=== PATIENT | female | born 1995 | race American Indian/Alaskan Native ===

== ENCOUNTER 2017-01-30 21:45 | Emergency (ER) | payer SELFPAY ==
[2017-01-30 23:55] LABS: Bilirubin,Urine NEG (Negative); Blood,Urine NEG (Negative); Ketones,Urine TR mg/dL (Negative); Leukocyte Esterase,Urine MOD (Negative); Mucus,Urine 1+ /HPF; Nitrite,Urine NEG (Negative)
[2017-01-31] MEDS ORDERED: ZOFRAN IV ONE (02:05)
[2017-01-31] MEDS ORDERED: MORPHINE IV ONE (02:05)
[2017-01-31] MEDS ORDERED: NACL 0.9% 1000 ML 1,000 ML IV ONE (02:06)
--- NOTE | 2017-01-31 02:09 | Emergency Department Report ---
HPI - General Chief Complaint: Abdominal Pain Time Seen by Provider: 01/31/17 01:58 - HPI HPI: Room 26 The patient is a 21-year-old female presenting with a chief complaint of abdominal pain. The patient states she has had pain in her right lower quadrant and suprapubic region for the past 10 days. Patient's current pain is cramping and constant in nature. Patient denies nausea or vomiting. Patient denies dysuria but states she's had yellowish vaginal discharge for the past 10 days. The patient admits to subjective fever. Patient currently gives her pain a score of 8-9/10 Location: [see above] Duration: [see above] Quality: Cramping Severity: 10 Modifying factors: [see above] Context: [see above] Mode of transportation: [not driving] ED Past Medical Hx - Past Medical History Previous Medical History?: Yes - Surgical History Past Surgical History?: Yes Additional Surgical History: c section x1 d&c x 1 - Family History Family history: no significant - Social History Smoking Status: Never Smoker Substance Use Type: None (denies illicit drug use), Alcohol (occasional) - Medications Home Medications: Home Medications Medication Instructions Recorded Confirmed Last Taken Type HYDROcodone/APAP 5-325 [Flomot 1 - 2 each PO Q6HR PRN #12 tablet 01/31/17 Unknown Rx 5/325] Ibuprofen [Motrin 800 MG tab] 800 mg PO Q8HR PRN #20 tablet 01/31/17 Unknown Rx Sulfamethoxazole/Trimethoprim 1 each PO BID #20 tablet 01/31/17 Unknown Rx [Bactrim DS TAB] metroNIDAZOLE [Flagyl] 500 mg PO Q12HR #14 tab 01/31/17 Unknown Rx ED Review of Systems ROS: Stated complaint: PELVIC PAIN/PRESSURE/DISCHARGE Other details as noted in HPI Comment: All other systems reviewed and negative Constitutional: fever (subjective). denies: chills Eyes: denies: eye pain, eye discharge, vision change ENT: denies: ear pain, throat pain Respiratory: denies: cough, shortness of breath, wheezing Cardiovascular: denies: chest pain, palpitations Endocrine: no symptoms reported Gastrointestinal: abdominal pain. denies: nausea, vomiting Genitourinary: discharge. denies: dysuria Musculoskeletal: denies: back pain, joint swelling, arthralgia Skin: denies: rash, lesions Neurological: denies: headache, weakness, paresthesias Psychiatric: denies: anxiety, depression Hematological/Lymphatic: denies: easy bleeding, easy bruising Physical Exam - Physical Exam Vital Signs: Vital Signs 01/30/17 21:54 Temperature 99.8 F H Pulse Rate 105 H Respiratory 20 Rate Blood Pressure 120/67 Blood Pressure 120/67 [Right] O2 Sat by Pulse 100 Oximetry Physical Exam: GENERAL: The patient is well-developed well-nourished female lying on stretcher appearing to be in mild discomfort HEENT: Normocephalic. Atraumatic. Extraocular motions are intact. Patient has moist mucous membranes. NECK: Supple. Trachea midline CHEST/LUNGS: Clear to auscultation. There is no respiratory distress noted. HEART/CARDIOVASCULAR: Regular. There is no tachycardia. There is no gallop rub or murmur. ABDOMEN: Abdomen is soft, with diffuse tenderness to palpation. Patient has normal bowel sounds. There is no abdominal distention. SKIN: There is no rash. There is no edema. There is no diaphoresis. NEURO: The patient is awake, alert, and oriented. The patient is cooperative. The patient has normal speech MUSCULOSKELETAL:There is no evidence of acute injury. PELVIC: Thick yellowish discharge present in the vaginal vault. Malodorous ED Course Vital Signs 01/30/17 21:54 Temperature 99.8 F H Pulse Rate 105 H Respiratory 20 Rate Blood Pressure 120/67 Blood Pressure 120/67 [Right] O2 Sat by Pulse 100 Oximetry ED Medical Decision Making - Lab Data Result diagrams: 01/31/17 02:21 01/31/17 02:21 Laboratory Tests 01/30/17 01/31/17 01/31/17 Unknown 00:01 02:21 WBC 11.4 H RBC 4.36 Hgb 8.5 L Hct 29.3 L MCV 67 L MCH 20 L MCHC 29 L RDW 21.3 H Plt Count 356 Lymph % (Auto) 13.2 L Angelina % (Auto) 8.2 H Eos % (Auto) 1.1 Baso % (Auto) 0.3 Lymph # 1.5 Angelina # 0.9 H Eos # 0.1 Baso # 0.0 Seg Neutrophils % 77.2 H Seg Neutrophils # 8.8 H Sodium Potassium Chloride Carbon Dioxide Anion Gap BUN Creatinine Estimated GFR BUN/Creatinine Ratio Glucose Calcium Total Bilirubin AST ALT Alkaline Phosphatase Total Protein Albumin Albumin/Globulin Ratio Urine Color Yellow Urine Turbidity Clear Urine pH 6.0 Ur Specific [place] 1.027 Urine Protein 30 mg/dl Urine Glucose (UA) Neg Urine Ketones Tr Urine Blood Neg Urine Nitrite Neg Urine Bilirubin Neg Urine Urobilinogen 2.0 Ur Leukocyte Esterase Mod Urine WBC (Auto) 28.0 H Urine RBC (Auto) 3.0 U Epithel Cells (Auto) 1.0 Urine Mucus 1+ Urine HCG, Qual Negative 01/31/17 02:21 WBC RBC Hgb Hct MCV MCH MCHC RDW Plt Count Lymph % (Auto) Angelina % (Auto) Eos % (Auto) Baso % (Auto) Lymph # Angelina # Eos # Baso # Seg Neutrophils % Seg Neutrophils # Sodium 138 Potassium 3.7 Chloride 101.8 Carbon Dioxide 24 Anion Gap 16 BUN 10 Creatinine 0.6 L Estimated GFR > 60 BUN/Creatinine Ratio 16.66 Glucose 92 Calcium 8.2 L Total Bilirubin 0.20 AST 11 ALT 6 L Alkaline Phosphatase 77 Total Protein 6.6 Albumin 3.6 L Albumin/Globulin Ratio 1.2 Urine Color Urine Turbidity Urine pH Ur Specific [place] Urine Protein Urine Glucose (UA) Urine Ketones Urine Blood Urine Nitrite Urine Bilirubin Urine Urobilinogen Ur Leukocyte Esterase Urine WBC (Auto) Urine RBC (Auto) U Epithel Cells (Auto) Urine Mucus Urine HCG, Qual Wet prep-greater than 20% clue cells, no yeast, no Trichomonas - Radiology Data Radiology results: report reviewed (CT abdomen and pelvis), image reviewed (CT abdomen and pelvis) CT abdomen and pelvis (read by radiologist)-there is no evidence of intestinal or urinary tract obstruction. No ileus or enteritis. The appendix is normal. Abdominal cyst right ovary measures 2.5 cm. Minimal fluid lower pelvis. The uterus is retroverted. - Differential Diagnosis vaginitis, appendicitis, UTI, ovarian cyst Critical care attestation.: If time is entered above; I have spent that time in minutes in the direct care of this critically ill patient, excluding procedure time. ED Disposition Clinical Impression: Acute abdominal pain, UTI (urinary tract infection), Right ovarian cyst, Bacterial vaginosis Disposition: TO HOME OR SELFCARE Is pt being admited?: No Does the pt Need Aspirin: No Condition: Stable Instructions: Abdominal Pain (ED), Bacterial Vaginosis (ED), Ovarian Cyst (ED) Prescriptions: HYDROcodone/APAP 5-325 [Flomot 5/325] 1 - 2 each PO Q6HR PRN #12 tablet PRN Reason: Pain Ibuprofen [Motrin 800 MG tab] 800 mg PO Q8HR PRN #20 tablet PRN Reason: Pain metroNIDAZOLE [Flagyl] 500 mg PO Q12HR #14 tab Sulfamethoxazole/Trimethoprim [Bactrim DS TAB] 1 each PO BID #20 tablet Referrals: PRIMARY CARE [Primary Care Provider] - 3-5 Days [facility] [Provider Group] - 3-5 Days (Please follow up with my OB/ [facility] for further evaluation/management of your right ovarian cyst) Forms: STI Treatment and Prevention Time of Disposition: 04:15
[2017-01-31] MEDS ORDERED: NACL ONE (02:21)
[2017-01-31 02:52] LABS: Basophils % (Auto) 0.3 % (0.0-1.8); Eosinophils % (Auto) 1.1 % (0.0-4.3); Mean Corpuscular HGB Conc 29 % (30-34); Platelet Count 356 K/mm3 (140-440); Red Blood Count 4.36 M/mm3 (3.65-5.03); White Blood Count 11.4 K/mm3 (4.5-11.0)
[2017-01-31 02:53] LABS: Hematocrit 29.3 % (30.3-42.9); Hemoglobin 8.5 gm/dl (10.1-14.3); Mean Corpuscular Hemoglobin 20 pg (28-32); Mean Corpuscular Volume 67 fl (79-97); Red Cell Distribution Width 21.3 % (13.2-15.2)
[2017-01-31 02:57] LABS: Alanine Aminotransferase 6 units/L (7-56); Albumin 3.6 g/dL (3.9-5); Albumin/Globulin Ratio 1.2 %; Alkaline Phosphatase 77 units/L (35-129); Anion Gap 16 mmol/L; BUN/Creatinine Ratio 16.66; Blood Urea Nitrogen 10 mg/dL (7-17); Calcium 8.2 mg/dL (8.4-10.2); Carbon Dioxide 24 mmol/L (22-30); Chloride 101.8 mmol/L (98-107); Glucose 92 mg/dL (65-100); Potassium 3.7 mmol/L (3.6-5.0); Sodium 138 mmol/L (137-145); Total Protein 6.6 g/dL (6.3-8.2)
[2017-01-31] MEDS ORDERED: SUBLIMAZE IV ONE (03:36)
--- NOTE | 2017-01-31 03:42 | Cat Scan Report ---
FINAL REPORT PROCEDURE: CT ABDOMEN PELVIS W CON TECHNIQUE: Computerized axial tomography of the abdomen and pelvis was performed after the IV injection of iodinated nonionic contrast. HISTORY: right lower quadrant abdominal pain COMPARISON: No prior studies are available for comparison. FINDINGS: Visualized lower thorax: No significant abnormality. Liver: Normal size and attenuation. Spleen: Normal size and attenuation. Gallbladder and biliary system: Normal. Pancreas: Normal. Adrenals: Normal. Kidneys: Normal. GI tract: The stomach is normal. The small bowel has a normal caliber. No obstruction, ileus or enteritis. The cecum, appendix and colon are normal.. Lymph nodes and mesentery: Normal. Vasculature: Normal. Bladder: Normal. Reproductive organs: The uterus is retroverted. A dominant cyst right ovary measures 2.5 centimeters. Minimal fluid in the lower pelvis.. Peritoneum: No free fluid. Musculoskeletal structures: No significant abnormality. Other: None. IMPRESSION: There is no evidence of intestinal or urinary tract obstruction. No ileus or enteritis. The appendix is normal. Dominant cyst right ovary measures 2.5 centimeters. Minimal fluid lower pelvis. The uterus is retroverted.
[2017-01-31] MEDS ORDERED: ZITHROMAX PO ONE (04:13)
[2017-01-31] MEDS ORDERED: XYLOCAINE 1% MPF 5 mL INFILTRATI ONE (04:13)
[2017-01-31] MEDS ORDERED: ROCEPHIN IM ONE (04:13)
[2017-01-31 04:29] VITALS: BP 117/64
== END 2017-01-31 04:39 | disposition home or self-care (01) ==
LOC: ED 21:45
DX: N39.0 Urinary tract infection, site not specified (principal); N83.201 Unspecified ovarian cyst, right side; N76.0 Acute vaginitis
CPT/HCPCS: 36415; 74177; 80053; 81001; 81025; 85025; 87210; 87591; 96361; 96372; 96374; 96375; 99285; J0696; J2270; J2405; J3010; J7030; Q9967

== ENCOUNTER 2018-09-06 18:21 | Outpatient (CLI) | payer OTHER ==
[2018-09-06] MEDS ORDERED: LACTATED RINGERS 500 ML IV ONE (19:32)
--- NOTE | 2018-09-06 21:36 | Ultrasound Report ---
FINAL REPORT PROCEDURE: US OB LIMITED TECHNIQUE: Real-time limited sonographic examination was performed for evaluation of amniotic fluid for each fetus with image documentation (1 or more fetuses). CPT 88243 HISTORY: r/o SROM COMPARISON: No prior studies are available for comparison. FINDINGS: A single intrauterine gestation is identified with a heart rate of 144 beats per minute. Placen ta is anterior. Presentation is cephalic. Amniotic fluid index is 9.4 centimeters. IMPRESSION: Amniotic fluid index is within normal limits measuring 9.4 centimeters
[2018-09-08 12:42] VITALS: BP 104/59
[2018-10-28 12:29] LABS: Bacteria,Urine 1+ /HPF (Negative); Mucus,Urine FEW /HPF
[2018-10-28 12:34] LABS: Bilirubin,Urine NEG (Negative); Blood,Urine NEG (Negative); Color,Urine Yellow (Yellow); Protein,Urine <15 mg/dL mg/dL (Negative); Urobilinogen,Urine < 2.0 mg/dL (<2.0)
== END 2018-09-06 20:25 | disposition home or self-care (01) ==
LOC: TRG 18:21
PROVIDERS: ATTEND Obstetrics & Gynecology
DX: O47.03 False labor before 37 completed weeks of gestation, third trimester (principal); Z3A.30 30 weeks gestation of pregnancy
CPT/HCPCS: 76815

== ENCOUNTER 2019-07-28 10:56 | Emergency (ER) | payer OTHER ==
--- NOTE | 2019-07-28 12:24 | Emergency Department Report ---
ED Fever HPI - General Chief Complaint: Fever Stated Complaint: FEVER Time Seen by Provider: 07/28/19 11:39 Source: patient Exam Limitations: no limitations - History of Present Illness Initial Comments: 24 year old female presents to ED c/o fever. 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 Patient states that her vital signs was checked by the nurse at the facility, and it was noted she had a temperature of 101 orally. Patient was not given anything for the fever. She states that she did notice that she started having some sore throat this morning. Otherwise she has not had any runny nose, nasal congestion, coughing, shortness of breath or wheezing. She has not had any GI or symptoms. She has not been around anybody sick. Timing/Duration: this morning Fever Severity/Quality: greater than 100.5 F Fever Therapy PHYSICIAN SPECIALIST: none Associated Symptoms: sore throat ED Review of Systems ROS: Stated complaint: FEVER Other details as noted in HPI Comment: All other systems reviewed and negative Constitutional: fever. denies: chills, weakness ENT: throat pain. denies: ear pain, dental pain, hearing loss, epistaxis, congestion Respiratory: denies: cough, orthopnea, shortness of breath, SOB with exertion, SOB at rest, stridor, wheezing Cardiovascular: denies: chest pain, palpitations, dyspnea on exertion, edema, syncope Gastrointestinal: denies: abdominal pain, nausea, diarrhea Genitourinary: denies: urgency, dysuria, frequency, hematuria Skin: denies: rash Neurological: denies: headache, weakness, numbness, paresthesias, confusion, abnormal gait, vertigo ED Past Medical Hx - Past Medical History Previous Medical History?: No Hx Hypertension: No Hx Diabetes: No Hx Deep Vein Thrombosis: No Hx Renal Disease: No Hx Sickle Cell Disease: No Hx Seizures: No Hx Asthma: No - Surgical History Past Surgical History?: Yes Additional Surgical History: c section x1 d&c x 1 - Social History Smoking Status: Current Every Day Smoker Substance Use Type: Alcohol, Marijuana - Medications Home Medications: Home Medications Medication Instructions Recorded Confirmed Last Taken Type HYDROcodone/APAP 5-325 [[place] 1 - 2 each PO Q6HR PRN #12 tablet 01/31/17 Unknown Rx 5/325] Sulfamethoxazole/Trimethoprim 1 each PO BID #20 tablet 01/31/17 Unknown Rx [Bactrim DS TAB] metroNIDAZOLE [Flagyl] 500 mg PO Q12HR #14 tab 01/31/17 Unknown Rx Acetaminophen 500 mg PO Q8H PRN 20 Days tablet 06/26/18 Unknown Rx Clindamycin [Clindamycin CAP] 300 mg PO Q8H #21 cap 06/26/18 Unknown Rx Phenol 1.4% [Chloraseptic] 2 spray MM PRN #1 bottle 07/28/19 Unknown Rx diphenhydrAMINE [Benadryl CAP] 25 mg PO Q6HR PRN #30 capsule 07/28/19 Unknown Rx predniSONE [Deltasone] 60 mg PO QDAY 4 Days #12 tab 07/28/19 Unknown Rx ED Physical Exam - General Limitations: No Limitations General appearance: alert, in no apparent distress - Head Head exam: Present: atraumatic - Eye Eye exam: Present: normal appearance, PERRL, EOMI Pupils: Present: normal accommodation - ENT ENT exam: Present: normal exam, mucous membranes moist, TM's normal bilaterally, other - Expanded ENT Exam Expanded Mouth exam: Present: normal external inspection Throat exam: Positive: tonsillar erythema. Negative: tonsillomegaly, tonsillar exudate, R peritonsillar mass, L peritonsillar mass - Neck Neck exam: Present: normal inspection, full ROM, lymphadenopathy. Absent: tenderness, meningismus - Respiratory Respiratory exam: Present: normal lung sounds bilaterally. Absent: respiratory distress, wheezes, rales, rhonchi, stridor - Cardiovascular Cardiovascular Exam: Present: regular rate, normal rhythm - GI/Abdominal GI/Abdominal exam: Present: soft, distended. Absent: tenderness - Neurological Exam Neurological exam: Present: alert, oriented X3, CN II-XII intact, normal gait - Psychiatric Psychiatric exam: Present: normal affect, normal mood - Skin Skin exam: Present: intact ED Course Vital Signs 07/28/19 07/28/19 07/28/19 11:12 13:06 15:31 Temperature 100.8 F H 98.5 F Pulse Rate 94 H 84 Respiratory 16 16 15 Rate Blood Pressure 128/77 123/79 [Right] O2 Sat by Pulse 98 100 Oximetry ED Medical Decision Making - Medical Decision Making 24 year old female presents with c/o fever. She states it developed while she was at a routine counseling session this morning. She reported feeling flushed and lightheaded at the time but this has since resolved. Only other symptom was sore throat. Rapid strep today negative. Fever could be related to viral pharyngitis at this time. Flu not done since pt not having any other symptoms. [id number] -- Upon discharge and discussing results and suspected dx with pt, she now reports pruritic rash which she noticed just a few minutes ago while in room. Only medication given was tylenol but she states it was just given to her and she has had tylenol before without any issues. She states she was laying in bed wrapped up in blanket, but otherwise no other new contacts. Pt does have a diffuse urticarial erythematous rash noted to bilateral upper extremity, chest, and her back. She has no swelling, no facial/antonio/throat/lip Involvement, no chest pain, wheezing or shortness of breath. Patient will be treated with solumedrol and benadryl prior to d/c. Exact cause of this urticarial rash unclear. Overall patient is not toxic, she is not ill-appearing, she is not in any acute pain or respiratory distress. Vital signs are stable. She is awake, alert, oriented 3, and neurologically intact. No indication for any further workup, admission or consultation at this time. Patient is stable at this time for discharge, she understands that if anything changes or worsens she is to return to the ER. Critical care attestation.: If time is entered above; I have spent that time in minutes in the direct care of this critically ill patient, excluding procedure time. ED Disposition Clinical Impression: Pharyngitis, Fever, Acute urticaria Disposition: DC-01 TO HOME OR SELFCARE Is pt being admited?: No Does the pt Need Aspirin: No Condition: Stable Instructions: Urticaria (ED), Pharyngitis (ED), Fever in Adults (ED) Additional Instructions: Recommend you take medications as prescribed. Motrin for any continue fever. REcommend lots of fluids. Return to ED if worse. Prescriptions: diphenhydrAMINE [Benadryl CAP] 25 mg PO Q6HR PRN #30 capsule PRN Reason: Allergy Symptoms Phenol 1.4% [Chloraseptic] 2 spray MM PRN #1 bottle predniSONE [Deltasone] 60 mg PO QDAY 4 Days #12 tab Referrals: CARBUCCIA,SANGEETA, MD [Staff Physician] - 3-5 Days Forms: Work/School Release Form(ED) Time of Disposition: 14:41
[2019-07-28] MEDS ORDERED: ACETAMINOPHEN 500 MG TAB PO ONE (12:49)
[2019-07-28] MEDS ORDERED: methylPREDNISolone Sod Succinate 125 MG/2 ML INJ IM ONE (14:48)
[2019-07-28] MEDS ORDERED: diphenhydrAMINE 25 MG CAP PO ONE ×2 (14:48→14:51)
[2019-07-28] MEDS ORDERED: methylPREDNISolone Sod Succinate 125 MG/2 ML INJ ONE (14:51)
[2019-07-28 15:32] VITALS: BP 123/79
== END 2019-07-28 15:37 | disposition home or self-care (01) ==
LOC: ED 10:56
DX: J02.9 Acute pharyngitis, unspecified (principal); L50.8 Other urticaria; R42 Dizziness and giddiness; F17.200 Nicotine dependence, unspecified, uncomplicated; F12.10 Cannabis abuse, uncomplicated; Z79.899 Other long term (current) drug therapy
CPT/HCPCS: 87116; 87430; 96372; 99283; J2930